=== PATIENT | female | born 1975 | race Caucasian/White ===

== ENCOUNTER → 2018-06-04 | Outpatient (CLI) | payer BC | END | disposition home or self-care (01) | LOC: LABWHC1 10:25 | PROVIDERS: ATTEND Allergy & Immunology | DX: Z53.9 Procedure and treatment not carried out, unspecified reason (principal) ==

== ENCOUNTER 2021-01-21 06:58 | Emergency (ER) | payer BC ==
[2021-01-21 07:08] VITALS: TEMP 99
--- NOTE | 2021-01-21 07:18 | ED ---
General Adult HPI - General Chief complaint: Extremity Injury, Lower Stated complaint: Lt Knee Pain Time Seen by Provider: 01/21/21 07:09 Source: patient, RN notes reviewed Mode of arrival: ambulatory Limitations: no limitations - History of Present Illness Initial comments: 45-year-old female presents to the emergency room for a chief complaint of post erior left knee pain. Patient states she notices about a week ago. Patient states she didn't really think anything of it until she called the symptoms and saw that it could be a blood clot. Patient denies any history of blood clots. Denies blood thinners. Patient maybe has some slight swelling in the posterior knee but nothing major. No significant pain in the calf. No chest pain or shortness of breath. Denies fevers or chills.Patient has no other complaints at this time including shortness of breath, chest pain, abdominal pain, nausea or vomiting, headache, or visual changes. - Related Data Allergies Allergy/AdvReac Type Severity Reaction Status Date / Time amoxicillin AdvReac Rash/Hives Verified 01/21/21 07:09 Review of Systems ROS Statement: Those systems with pertinent positive or pertinent negative responses have been documented in the HPI. ROS Other: All systems not noted in ROS Statement are negative. Past Medical History Past Medical History: No Reported History History of Any Multi-Drug Resistant Organisms: None Reported Past Surgical History: No Surgical Hx Reported Past Psychological History: No Psychological Hx Reported Smoking Status: Never smoker Past Alcohol Use History: Rare Past Drug Use History: None Reported General Exam Limitations: no limitations General appearance: alert, in no apparent distress Head exam: Present: atraumatic Eye exam: Present: normal appearance, PERRL, EOMI. Absent: scleral icterus, conjunctival injection ENT exam: Present: normal exam, mucous membranes moist Neck exam: Present: normal inspection, full ROM. Absent: tenderness Respiratory exam: Present: normal lung sounds bilaterally. Absent: respiratory distress, wheezes Cardiovascular Exam: Present: regular rate, normal rhythm, normal heart sounds GI/Abdominal exam: Present: soft, normal bowel sounds. Absent: distended, tenderness Extremities exam: Present: full ROM (Full range of motion of the left knee.), tenderness (Mild tenderness in the posterior left knee.), normal capillary refill (Capillary refill less than 2 seconds left lower extremity. DP and PT pulses 2+.). Absent: joint swelling (No edema or erythema of the left knee joint.), calf tenderness (No tenderness of the left calf.) Neurological exam: Present: alert Course Vital Signs 01/21/21 01/21/21 07:05 08:59 Temperature 99.0 F Pulse Rate 111 H 87 Respiratory 18 16 Rate Blood Pressure 127/69 115/78 O2 Sat by Pulse 95 96 Oximetry Medical Decision Making - Medical Decision Making Ultrasound shows no evidence of DVT within the left lower extremity from the level of the knee centrally. Patient's pain is likely musculoskeletal given pain with movement of the knee. Recommend patient try anti-inflammatories and if pain is not resolving to follow up with orthopedics. Referral given. She will return here for any worsening symptoms. Disposition Clinical Impression: Knee pain, left Disposition: HOME SELF-CARE Condition: Good Instructions (If sedation given, give patient instructions): Knee Sprain (ED) Additional Instructions: Please follow up with primary care in 1-2 days. Return to the emergency room for any worsening symptoms. Is patient prescribed a controlled substance at d/c from ED?: No Referrals: Charles Willis MD [STAFF PHYSICIAN] - 1-2 days Time of Disposition: 08:28
--- NOTE | 2021-01-21 08:20 | US ---
EXAMINATION TYPE: US venous doppler duplex LE LT DATE OF EXAM: 01/21/2021 8:06 AM COMPARISON: NONE CLINICAL HISTORY: pain. left knee pain for 1 week SIDE PERFORMED: left TECHNIQUE: The lower extremity deep venous system is examined utilizing real time linear array sonog danny with graded compression, doppler sonography and color-flow sonography. VESSELS IMAGED: Common Femoral Vein Deep Femoral Vein Greater Saphenous Vein * Femoral Vein Popliteal Vein Small Saphenous Vein * Proximal Calf Veins (* superficial vessels) There is normal flow, compressibility, vascular waveforms. Left Leg: no evidence of DVT IMPRESSION: No evident deep venous thrombosis within the left lower extremity from the level of the k nee centrally
[2021-01-21 09:00] VITALS: BP 115/78; PULSE 87; RESP 16
== END 2021-01-21 09:00 | disposition home or self-care (01) ==
LOC: EC 06:58
DX: M25.562 Pain in left knee (principal); Z88.0 Allergy status to penicillin
CPT/HCPCS: 99283